=== PATIENT | male | born 1975 | race Caucasian/White ===

== ENCOUNTER 2016-05-12 09:30 | Emergency (ER) | payer SELFPAY ==
[2016-05-12] MEDS ORDERED: ASPIRIN 81 MG TABLET, CHEWABLE PO ONE (09:36)
--- NOTE | 2016-05-12 10:12 | EKG REPORT ---
SEVERITY:- NORMAL ECG - SINUS RHYTHM : Confirmed by: Jenae Dover 12-May-2016 10:10:46
[2016-05-12 10:19] LABS: ABSOLUTE BASOPHILS # (AUTO) 0.1 10^3/uL (0.0-0.2); ABSOLUTE EOSINOPHILS # (AUTO) 0.1 10^3/uL (0.0-0.6); ABSOLUTE LYMPHOCYTES (AUTO) 1.5 10^3/uL (0.5-4.7); ABSOLUTE MONOCYTES (AUTO) 0.8 10^3/uL (0.1-1.4); ABSOLUTE NEUT (AUTO) 8.7 10^3/uL (1.7-8.2); BASOPHILS % (AUTO) 0.8 % (0-2); EOSINOPHILS % (AUTO) 0.9 % (0-6); HEMATOCRIT 38.2 % (37.9-51.0); HEMOGLOBIN 12.1 g/dL (13.5-17.0); HGB HCT DIFFERENCE -1.9; LYMPHOCYTES % (AUTO) 13.2 % (13-45); MEAN CORPUSCULAR HEMOGLOBIN 25.5 pg (27.0-33.4); MEAN CORPUSCULAR HGB CONC 31.8 g/dL (32.0-36.0); MEAN CORPUSCULAR VOLUME 80 fl (80-97); MONOCYTES % (AUTO) 7.3 % (3-13); RED BLOOD COUNT 4.77 10^6/uL (4.35-5.55); RED CELL DISTRIBUTION WIDTH 21.5 % (11.5-14.0); SEGMENTED NEUTROPHILS % (AUTO) 77.8 % (42-78); WHITE BLOOD COUNT 11.2 10^3/uL (4.0-10.5)
[2016-05-12] MEDS ORDERED: MORPHINE SULFATE 10 MG/ML INJ IV ONE ×2 (10:19→12:19)
[2016-05-12] MEDS ORDERED: NITROGLYCERIN 2% OINTMENT 1 GM PACKET TP ONE (10:19)
[2016-05-12 11:00] LABS: CREATINE KINASE MB < 0.22 ng/mL (<4.55); TROPONIN I < 0.012 ng/mL
[2016-05-12 11:30] LABS: ALANINE AMINOTRANSFERASE 48 U/L (21-72); ALBUMIN 3.4 g/dL (3.5-5.0); ALKALINE PHOSPHATASE 78 U/L (38-126); ANION GAP 10 (5-19); ASPARTATE AMINO TRANSFERASE 37 U/L (17-59); BILIRUBIN,TOTAL 0.4 mg/dL (0.2-1.3); BLOOD UREA NITROGEN 10 mg/dL (7-20); CALCIUM 9.1 mg/dL (8.4-10.2); CARBON DIOXIDE 24 mmol/L (22-30); CHLORIDE 107 mmol/L (98-107); CREATININE RESULT 0.51 mg/dL (0.52-1.25); GLUCOSE 90 mg/dL (75-110); POTASSIUM 3.6 mmol/L (3.6-5.0); SODIUM 140.8 mmol/L (137-145); TOTAL PROTEIN 6.2 g/dL (6.3-8.2)
[2016-05-12] MEDS ORDERED: IPRATROPIUM/ALBUTEROL 0.5-2.5 MG/3 ML AMPUL NEB ONE (11:30)
--- NOTE | 2016-05-12 11:30 | ER Document Report ---
ED General - General Chief Complaint: Chest Pain Stated Complaint: SHORTNESS OF BREATH Notes: This is a 40-year-old male with history of COPD, CHF, chronic pain, left hip avascular necrosis who presents with multiple complaints. He states that his COPD is getting worse over the past 2 weeks. He denies fever but states he's had a cough and increased shortness of breath. He also notes increased leg swelling. He complains of chest pain radiating to bilateral scapula which is been present for several days. He states it's related to chronic coughing. He also notes that he is out of his Percocet 10 mg which he takes every 4 hours. He states he was hospitalized at hospital in [place] about 2 weeks ago for COPD exacerbation. He is taking his usual medications. He is traveling to this area and staying in a motel. He has no local physician. TRAVEL OUTSIDE OF THE U.S. IN LAST 30 DAYS: No - HPI Quality of pain: Achy Severity: Moderate Associated symptoms: Nonproductive cough, Leg swelling Exacerbated by: Walking Similar symptoms previously: Yes Recently seen / treated by doctor: Yes Past Medical History - General Information source: Patient - Social History Smoking Status: Former Smoker Chew tobacco use (# tins/day): No Frequency of alcohol use: None Drug Abuse: None Lives with: Homeless Family History: CAD, Hypertension Patient has suicidal ideation: No Patient has homicidal ideation: No - Past Medical History Cardiac Medical History: Reports: Hx Congestive Heart Failure, Hx Hypertension Pulmonary Medical History: Reports: Hx COPD Review of Systems - Review of Systems Constitutional: denies: Fever EENT: denies: Throat pain Cardiovascular: denies: Syncope Respiratory: Cough, Wheezing Gastrointestinal: denies: Abdominal pain, Diarrhea, Vomiting Genitourinary: denies: Flank pain Hematologic/Lymphatic: Easy bleeding, Easy bruising. denies: Blood clots Neurological/Psychological: denies: Weakness, Lost consciousness, Numbness, Tingling Physical Exam - Vital signs Vitals: Temp Pulse Resp Pulse Ox 98.6 F 75 16 100 05/12/16 09:34 05/12/16 09:34 05/12/16 09:34 05/12/16 09:34 - General General appearance: Alert In distress: None - HEENT Head: Normocephalic Pupils: PERRL Nasal: Normal Mouth/Lips: Normal Pharynx: Normal Neck: Normal - Respiratory Respiratory status: No respiratory distress Breath sounds: Rales, Wheezing Chest palpation: Normal - Cardiovascular Rhythm: Regular Murmur: No - Abdominal Inspection: Obese Tenderness: Nontender - Back Back: Normal - Extremities General upper extremity: Normal inspection General lower extremity: Edema - Neurological Neuro grossly intact: Yes Orientation: AAOx4 Motor strength normal: LUE, RUE, LLE, RLE - Psychological Associated symptoms: Normal affect - Skin Skin Temperature: Warm Skin Moisture: Dry Skin Color: Normal Skin irregularity: other - Track markson left volar forearm Course - Vital Signs Vital signs: Temp Pulse Resp BP Pulse Ox 98.6 F 75 23 H 175/110 H 93 05/12/16 10:32 05/12/16 09:34 05/12/16 14:01 05/12/16 14:01 05/12/16 14:01 - Laboratory Result Diagrams: 05/12/16 10:03 05/12/16 10:03 Laboratory results interpreted by me: 05/12/16 05/12/16 05/12/16 10:03 10:03 10:03 WBC 11.2 H Hgb 12.1 L MCH 25.5 L MCHC 31.8 L RDW 21.5 H Absolute Neutrophils 8.7 H Creatinine 0.51 L Creatine Kinase < 20 L NT-Pro-B Natriuret Pep 882 H Total Protein 6.2 L Albumin 3.4 L Urine Glucose (UA) 05/12/16 12:19 WBC Hgb MCH MCHC RDW Absolute Neutrophils Creatinine Creatine Kinase NT-Pro-B Natriuret Pep Total Protein Albumin Urine Glucose (UA) 50 H - Diagnostic Test Radiology reviewed: Image reviewed, Reports reviewed - EKG Interpretation by Co EKG shows normal: Sinus rhythm Rate: Normal - 85 When compared to previous EKG there are: Previous EKG unavailable Additional EKG results interpreted by me: 05/12/16 15:[address] elevations Discharge - Discharge Clinical Impression: GERD (gastroesophageal reflux disease) Qualifiers: Esophagitis presence: esophagitis presence not specified Qualified Code(s): K21.9 - Gastro-esophageal reflux disease without esophagitis Chronic hip pain Qualifiers: Laterality: left Qualified Code(s): M25.552 - Pain in left hip Condition: Stable Disposition: HOME, SELF-CARE Instructions: Chest Pain of Unclear Cause ([facility]) Additional Instructions: your tests today are reassuring. You should follow up with a primary care physician as soon as possible. Return if you have fever, difficulty breathing or are feeling worse. Forms: Elevated Blood Pressure
[2016-05-12 11:31] LABS: CREATINE KINASE < 20 U/L (55-170)
[2016-05-12 13:05] LABS: APPEARANCE,URINE CLEAR; BILIRUBIN,URINE NEGATIVE (NEGATIVE); GLUCOSE, URINE 50 mg/dL (NEGATIVE); KETONES,URINE NEGATIVE (NEGATIVE); LEUKOCYTE ESTERASE,URINE NEGATIVE (NEGATIVE); NITRITE,URINE NEGATIVE (NEGATIVE); PROTEIN,URINE NEGATIVE (NEGATIVE); URINE SPECIFIC GRAVITY 1.016; UROBILINOGEN,URINE NEGATIVE mg/dL (<2.0)
[2016-05-12 13:06] LABS: RBC,URINE RARE /HPF; WBC,URINE RARE /HPF
[2016-05-12] MEDS ORDERED: MAG HYDROX/AL HYDROX/SIMETH SUSP 30 ML UDCUP PO ONE ×2 (15:16→15:17)
[2016-05-12] MEDS ORDERED: METOCLOPRAMIDE HCL ORAL SOLN 10 MG/10 ML UDCUP PO ONE ×2 (15:16→15:17)
[2016-05-12] MEDS ORDERED: LIDOCAINE 2% VISCOUS SOLN 20 ML UDCUP PO ONE ×2 (15:16→15:17)
[2016-05-12] MEDS ORDERED: CLONIDINE HCL 0.1 MG TABLET PO ONE (15:19)
[2016-05-12] MEDS ORDERED: KETOROLAC TROMETHAMINE INJ/PF 30 MG/1 ML SDV IV ONE (15:24)
[2016-05-12 18:19] VITALS: BP 157/113
== END 2016-05-12 18:19 | disposition home or self-care (01) ==
LOC: ER 09:30
DX: K21.9 Gastro-esophageal reflux disease without esophagitis (principal); M25.552 Pain in left hip; G89.29 Other chronic pain; J44.9 Chronic obstructive pulmonary disease, unspecified; R05 Cough; R06.02 Shortness of breath; R07.9 Chest pain, unspecified; R60.0 Localized edema; I10 Essential (primary) hypertension; Z79.899 Other long term (current) drug therapy; Z87.891 Personal history of nicotine dependence; Z82.49 Family history of ischemic heart disease and other diseases of the circulatory system
CPT/HCPCS: 93005; 94640; 96376; 99285; 96374; 96375; 36415; 82553; 82550; 85025; 80053; 81001; 84484; 83880; 71010; 73502; 93010; J3490; J1885; J2270; J7620

== ENCOUNTER 2016-05-13 02:07 | Emergency (ER) | payer SELFPAY ==
--- NOTE | 2016-05-13 04:20 | ER Document Report ---
ED Hip Pain/Injury - General Chief Complaint: Hip Pain Stated Complaint: HIP PAIN Mode of Arrival: Ambulatory Information source: Patient Notes: Pt is a 40 -year-old male who presents to the ER for the second time in 24 hours for chest pain all across his chest that feels like "pressure" and also describes it as "a tightness." Patient states that he's had a worsening cough over the past week and that he has COPD. He is using inhalers at home but states that they are not make any difference. He states "I'm usually admitted for this, can you just keep me a usually takes a lot of breathing treatments to get this to come up." He denies any fevers or chills. TRAVEL OUTSIDE OF THE [place]S. IN LAST 30 DAYS: No - Related Data Allergies/Adverse Reactions: No Known Allergies Allergy (Unverified 05/13/16 02:19) Past Medical History - General Information source: Patient - Social History Smoking Status: Unknown if Ever Smoked Family History: CAD, Hypertension Patient has suicidal ideation: No Patient has homicidal ideation: No - Past Medical History Cardiac Medical History: Reports: Hx Congestive Heart Failure, Hx Hypertension Pulmonary Medical History: Reports: Hx COPD Review of Systems - Review of Systems Constitutional: No symptoms reported EENT: No symptoms reported Cardiovascular: No symptoms reported Respiratory: See HPI Gastrointestinal: No symptoms reported Genitourinary: No symptoms reported Male Genitourinary: No symptoms reported Musculoskeletal: No symptoms reported Skin: No symptoms reported Hematologic/Lymphatic: No symptoms reported Neurological/Psychological: No symptoms reported Physical Exam - Notes Notes: PHYSICAL EXAMINATION: GENERAL: Sleeping, in no acute distress. HEAD: Atraumatic, normocephalic. EYES: Pupils equal round and reactive to light, extraocular movements intact, sclera anicteric, conjunctiva are normal. ENT: ear canals without erythema or foreign body, TMs pearly houser with good bony landmarks, nares patent, oropharynx clear without exudates. Moist mucous membranes. Airway patent NECK: Normal range of motion, supple without lymphadenopathy LUNGS: Moderate expiratory wheezes in all lung mcmahon, no rales or rhonchi. HEART: Regular rate and rhythm without murmurs ABDOMEN: Soft, no tenderness. No guarding, no rebound SKIN: Warm, Dry, normal turgor, no rashes or lesions noted Course - Re-evaluation Re-evalutation: 05/13/16 05:20 Patient had 2 sets of normal cardiac enzymes when he was here earlier today, more than 4 hours apart. Patient has moderate wheezes throughout and was given breathing treatments here. On arrival he was 98% on room air without any breathing treatments or oxygen. I do not see necessary to admit the patient at this time as his vital signs are stable and are normal except for some elevated blood pressure. I do believe patient may be homeless and is looking for somewhere to stay. Discharge - Discharge Clinical Impression: COPD exacerbation Condition: Stable Disposition: HOME, SELF-CARE Instructions: Chronic Obstructive Lung Disease ([facility]) Additional Instructions: Return immediately for any new or worsening symptoms. Follow up with primary care provider, call tomorrow to make followup appointment. Prescriptions: Azithromycin [Zithromax 250 mg Tablet] 250 mg PO ASDIR PRN #6 tablet PRN Reason: Prednisone 40 mg PO DAILY #10 tablet Referrals: [facility] [Provider Group] - Follow up as needed
[2016-05-13] MEDS ORDERED: IPRATROPIUM/ALBUTEROL 0.5-2.5 MG/3 ML AMPUL NEB ONE (04:31)
[2016-05-13] MEDS ORDERED: AZITHROMYCIN 250 MG TABLET PO ONE (04:32)
[2016-05-13] MEDS ORDERED: OXYCODONE-ACETAMINOPHEN 5-325 MG TABLET PO ONE (04:32)
[2016-05-13] MEDS ORDERED: ALBUTEROL SULFATE 0.083% NEB 2.5 MG/3 ML AMPUL NEB ONE (04:32)
== END 2016-05-13 07:15 | disposition home or self-care (01) ==
LOC: ER 02:07
DX: J44.1 Chronic obstructive pulmonary disease with (acute) exacerbation (principal); M25.559 Pain in unspecified hip; R07.9 Chest pain, unspecified
CPT/HCPCS: 94640 ×2; 99284; J7620

== ENCOUNTER 2016-05-13 12:45 | Emergency (ER) | payer SELFPAY ==
[2016-05-13 13:17] VITALS: BP 180/139
--- NOTE | 2016-05-13 13:41 | ER Document Report ---
ED Medical Screen (RME) - General Chief Complaint: Hip Pain Stated Complaint: LEFT HIP PAIN,COUGH,CONGESTION Notes: 40 yo male c/o left hip x 2 weeks. no trauma. difficulty to walk. Aslo c/o difficulty breathing and intermittant chest pain, aching x 3 days. hx/o CHF, COPD. reports meds not working. + cough. no fever. + hx/o HTN. BP elevated today 180/139. Pt reports taking meds as prescribed. Reports increased pedal edema. TRAVEL OUTSIDE OF THE [place] IN LAST 30 DAYS: No - Related Data Allergies/Adverse Reactions: No Known Allergies Allergy (Verified 05/13/16 13:09) Past Medical History - Social History Chew tobacco use (# tins/day): No Frequency of alcohol use: None Drug Abuse: None - Past Medical History Cardiac Medical History: Reports: Hx Congestive Heart Failure, Hx Hypertension Pulmonary Medical History: Reports: Hx COPD Physical Exam - Vital signs Vitals: Temp Pulse Resp BP Pulse Ox 98.5 F 73 20 180/139 H 97 05/13/16 13:13 05/13/16 13:13 05/13/16 13:13 05/13/16 13:13 05/13/16 13:13 Course - Vital Signs Vital signs: Temp Pulse Resp BP Pulse Ox 98.5 F 73 20 180/139 H 97 05/13/16 13:13 05/13/16 13:13 05/13/16 13:13 05/13/16 13:13 05/13/16 13:13
[2016-05-13] MEDS ORDERED: OXYCODONE-ACETAMINOPHEN 5-325 MG TABLET PO ONE (13:42)
[2016-05-13] MEDS ORDERED: MAG HYDROX/AL HYDROX/SIMETH SUSP 30 ML UDCUP PO ONE (13:51)
[2016-05-13 14:39] LABS: ABSOLUTE EOSINOPHILS # (AUTO) 0.1 10^3/uL (0.0-0.6); ABSOLUTE LYMPHOCYTES (AUTO) 1.4 10^3/uL (0.5-4.7); ABSOLUTE MONOCYTES (AUTO) 0.6 10^3/uL (0.1-1.4); ABSOLUTE NEUT (AUTO) 5.5 10^3/uL (1.7-8.2); BASOPHILS % (AUTO) 0.4 % (0-2); EOSINOPHILS % (AUTO) 1.4 % (0-6); HEMOGLOBIN 11.8 g/dL (13.5-17.0); HGB HCT DIFFERENCE -0.6; LYMPHOCYTES % (AUTO) 18.4 % (13-45); MEAN CORPUSCULAR HEMOGLOBIN 25.8 pg (27.0-33.4); MEAN CORPUSCULAR HGB CONC 32.8 g/dL (32.0-36.0); MEAN CORPUSCULAR VOLUME 79 fl (80-97); MONOCYTES % (AUTO) 7.9 % (3-13); RED BLOOD COUNT 4.57 10^6/uL (4.35-5.55); RED CELL DISTRIBUTION WIDTH 21.5 % (11.5-14.0); SEGMENTED NEUTROPHILS % (AUTO) 71.9 % (42-78); WHITE BLOOD COUNT 7.7 10^3/uL (4.0-10.5)
[2016-05-13 15:04] LABS: ALANINE AMINOTRANSFERASE 53 U/L (21-72); ALBUMIN 3.3 g/dL (3.5-5.0); ALKALINE PHOSPHATASE 77 U/L (38-126); ANION GAP 10 (5-19); ASPARTATE AMINO TRANSFERASE 22 U/L (17-59); BILIRUBIN,TOTAL 0.2 mg/dL (0.2-1.3); BLOOD UREA NITROGEN 10 mg/dL (7-20); CALCIUM 9.4 mg/dL (8.4-10.2); CARBON DIOXIDE 25 mmol/L (22-30); CHLORIDE 106 mmol/L (98-107); CREATINE KINASE < 20 U/L (55-170); CREATININE RESULT 0.76 mg/dL (0.52-1.25); GLUCOSE 83 mg/dL (75-110); POTASSIUM 3.6 mmol/L (3.6-5.0); SODIUM 140.9 mmol/L (137-145); TOTAL PROTEIN 5.5 g/dL (6.3-8.2)
[2016-05-13 15:15] LABS: CREATINE KINASE MB < 0.22 ng/mL (<4.55); TROPONIN I < 0.012 ng/mL
--- NOTE | 2016-05-13 15:35 | ER Document Report ---
ED Hip Pain/Injury <TUCKER HUNT - Last Filed: 05/13/16 15:52> - General Mode of Arrival: Wheelchair Information source: Patient - HPI Patient complains to provider of: Pain, Hip Associated Symptoms: Other - See above <SHY HUDSON - Last Filed: 05/13/16 16:13> - General Chief Complaint: Hip Pain Stated Complaint: hip pain Notes: Patient is a 40 year old male, with a past medical history including COPD, who presents to the emergency department complaining of left hip pain. Patient reports this pain is chronic and he has had no recent falls or trauma to the hip. Patient reports that he was at this facility yesterday for similar complaints and states he was given morphine through an IV and prescribed percocet 10. Patient reports he was told he had avascular necrosis of his left hip bone a while back and uses a wheelchair. Patient reports he is homeless and does not have a primary care physician or a pain management doctor. (SHY HUDSON) - Related Data Allergies/Adverse Reactions: No Known Allergies Allergy (Verified 05/13/16 13:09) Past Medical History - General Information source: Patient - Social History Smoking Status: Current Every Day Smoker Chew tobacco use (# tins/day): No Frequency of alcohol use: None Drug Abuse: None Family History: Reviewed & Not Pertinent, CAD, Hypertension Patient has suicidal ideation: No Patient has homicidal ideation: No - Past Medical History Cardiac Medical History: Reports: Hx Congestive Heart Failure, Hx Hypertension Pulmonary Medical History: Reports: Hx COPD Musculoskeltal Medical History: Reports Other - Hx Avascular necrosis left hip <SHY HUDSON - Last Filed: 05/13/16 16:13> Review of Systems - Review of Systems Constitutional: No symptoms reported EENT: No symptoms reported Cardiovascular: No symptoms reported Respiratory: No symptoms reported Gastrointestinal: No symptoms reported Genitourinary: No symptoms reported Male Genitourinary: No symptoms reported Musculoskeletal: See HPI, Joint pain - left hip Skin: No symptoms reported Hematologic/Lymphatic: No symptoms reported Neurological/Psychological: No symptoms reported -: Yes All other systems reviewed and negative <SHY HUDSON - Last Filed: 05/13/16 16:13> Physical Exam - Vital signs Interpretation: Normal - General General appearance: Appears well, Alert, Other - Patient has no verbal complaints of chest pain or any other complaint other than his chronic left hip pain. Patient was agitated when told he would not receive prescription pain medications for his chronic pain and refused a hands on physcial exam. - HEENT Head: Normocephalic, Atraumatic - Respiratory Respiratory status: No respiratory distress - Neurological Neuro grossly intact: Yes Cognition: Normal Orientation: AAOx4 [place] Coma Scale Eye Opening: Spontaneous [place] Coma Scale Verbal: Oriented Brittany Coma Scale Motor: Obeys Commands [place] Coma Scale Total: 15 Speech: Normal - Psychological Associated symptoms: Normal affect, Normal mood <SHY HUDSON - Last Filed: 05/13/16 16:13> - Vital signs Vitals: Temp Pulse Resp BP Pulse Ox 98.5 F 73 20 180/139 H 97 05/13/16 13:13 05/13/16 13:13 05/13/16 13:13 05/13/16 13:13 05/13/16 13:13 (TUCKER HUNT) Course - Laboratory Result Diagrams: 05/13/16 13:55 05/13/16 13:55 <TUCKER HUNT - Last Filed: 05/13/16 15:52> - Laboratory Result Diagrams: 05/13/16 13:55 05/13/16 13:55 <SHY HUDSON - Last Filed: 05/13/16 16:13> - Re-evaluation Re-evalutation: 05/13/16 15:42 I personally performed the services described in the documentation, reviewed and edited the documentation which was dictated to my scribe in my presence, and it accurately records my words and actions. patient brought from the front and triage nurse came to speak to me in regards to the patient was demanding narcotics out there wanted to receive them and then leave. She explained to him that she needed to get him into a bed in a gown so that the doctor could fully examine him. I did have the nurse get him into gown when he refused to take his pants and shoes off. I came to the bedside with him to speak to him in regards to his concerns. He was apparently here last night review her records show that he has she has history of COPD hypertension and chronic left hip pain which she says is avascular necrosis. They evaluated him last evening no acute medical findings recommended outpatient follow-up with the clinic. He states that he was given morphine and a prescription for Percocet 10 there is no record that states he was given that he was given an inhaler and a prednisone tablet. He states he is here now to get a shot of morphine and something stronger than Percocet for his chronic hip pain. He denies this being any new or different than it's been for years since he's been diagnosed with avascular necrosis. He denies any new history of falls new numbness tingling weakness back pain or loss of bowel or bladder function. He there is no mention in the chart yesterday evening complained about his pain it was primarily COPD complaints. On examination try to talk with him and he becomes very argumentative and aggressive increasing his voice and asking for pain medication. At this point security stepped in just to be present and I asked the case specialist to be involved along with my scribe at the bedside to discuss with him options for management of his chronic pain. He is not actively any shortness of breath wheezing or respiratory failure. He is of sound mind and judgment with a GCS of 15. He would not allow me to do a physical examination on him despite offering multiple times to please let me do a complete examination on him including heart lungs belly blood vessels neurovascular deficits evaluate his back he refused to do so stating if you do not give any pain medications are not underlying to examine me. At this point he repeatedly told me that I was unable to continue my assessment on him. The case specialist tried to speak with him in terms of setting him up with an outpatient pain management and a clinic doctor for follow-up he refused to speak with her refused to sign the paperwork in the AMA form. On my medical screening examination there is no acute emergency medical conditions present on evaluation but limited due to inability to check pulses vascular neurological exam. I told him he could come back at any time to be reassessed and reevaluated if there is has any concerns however explained to him that we have a pain policy here in terms of management of chronic pain if we do not see anything new or different. He refused to take the chronic pain policy as well. Told him he could come back to the emergency department openly for anything he felt was necessary for evaluation gave him discharged actions for follow-up with the pain management [place] as well as the clinic for follow- up for evaluation of his high blood pressure and COPD that is untreated. 05/13/16 15:52 (TUCKER HUNT) - Vital Signs Vital signs: Temp Pulse Resp BP Pulse Ox 98.5 F 73 20 180/139 H 97 05/13/16 13:13 05/13/16 13:13 05/13/16 13:13 05/13/16 13:13 05/13/16 13:13 (TUCKER HUNT) (SHY HUDSON) - Laboratory Laboratory results interpreted by me: 05/13/16 05/13/16 13:55 13:55 Hgb 11.8 L Hct 36.0 L MCV 79 L MCH 25.8 L RDW 21.5 H Creatine Kinase < 20 L Total Protein 5.5 L Albumin 3.3 L (TUCKER HUNT) (SHY HUDSON) - EKG Interpretation by Me Additional EKG results interpreted by me: 05/13/16 15:39 EKG interpreted by myself to reveal a sinus rhythm at 83 PT per minute occasional PVCs no acute ST segment elevation or depression (TUCKER HUNT) Scribe Documentation - Scribe Written by Amie:: amie Hartman, 05/13/16, 0951 acting as scribe for :: Jax <SHY HUDSON - Last Filed: 05/13/16 16:13>
--- NOTE | 2016-05-13 16:03 | EKG REPORT ---
SEVERITY:- ABNORMAL ECG - SINUS RHYTHM MULTIPLE VENTRICULAR PREMATURE COMPLEXES : Confirmed by: Jenae Dover 13-May-2016 16:03:04
--- NOTE | 2016-05-25 09:15 | ER Document Report ---
Doctor's Note Notes: 05/25/16 09:14 diagnosis 1. copd 2. narcotic seeking behavior
== END 2016-05-13 15:45 | disposition home or self-care (01) ==
LOC: ER 12:45
DX: J44.9 Chronic obstructive pulmonary disease, unspecified (principal); Z76.5 Malingerer [conscious simulation]; G89.29 Other chronic pain; M25.552 Pain in left hip; I10 Essential (primary) hypertension; F17.200 Nicotine dependence, unspecified, uncomplicated; I50.9 Heart failure, unspecified
CPT/HCPCS: 36415; 71020; 80053; 82550; 82553; 84484; 85025; 93005; 93010; 99284

== ENCOUNTER 2016-05-13 19:44 | Emergency (ER) | payer SELFPAY ==
--- NOTE | 2016-05-13 21:35 | ER Document Report ---
ED Medical Screen (RME) - General Chief Complaint: Shortness Of Breath Stated Complaint: DIFFICULTY BREATHING Notes: 40 yo male just discharged from ED, signed back in c/o still being short of breath and left hip. Pt has hx/o COPD and chronic hip pain from avascular necrosis. Pt was offered case management assistant today but refused. Pt refused to be examined by MD. Requesting pain medication. No resp distress. Sat 99%. See Dr Camara's note. TRAVEL OUTSIDE OF THE [place] IN LAST 30 DAYS: No - Related Data Allergies/Adverse Reactions: No Known Allergies Allergy (Verified 05/13/16 13:09) Past Medical History - Past Medical History Cardiac Medical History: Reports: Hx Congestive Heart Failure, Hx Hypertension Pulmonary Medical History: Reports: Hx COPD
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
[2016-05-14] MEDS ORDERED: IPRATROPIUM/ALBUTEROL 0.5-2.5 MG/3 ML AMPUL NEB ONE (00:21)
[2016-05-14] MEDS ORDERED: IBUPROFEN 600 MG TABLET PO ONE (00:22)
[2016-05-14] MEDS ORDERED: AMLODIPINE BESYLATE 10 MG TABLET PO ONE (00:57)
[2016-05-14] MEDS ORDERED: LISINOPRIL 10 MG TABLET PO ONE (00:58)
[2016-05-14 02:49] VITALS: BP 169/94
== END 2016-05-14 01:26 | disposition home or self-care (01) ==
LOC: ER 19:44
DX: J44.9 Chronic obstructive pulmonary disease, unspecified (principal); G89.29 Other chronic pain; M25.552 Pain in left hip; I10 Essential (primary) hypertension; F17.210 Nicotine dependence, cigarettes, uncomplicated; R06.02 Shortness of breath; I50.9 Heart failure, unspecified; E66.9 Obesity, unspecified; Z59.0 Homelessness
CPT/HCPCS: 94640; 99284; J7620